=== PATIENT | male | born 1985 | race Caucasian/White ===

== ENCOUNTER 2017-04-14 03:08 | Emergency (ER) | payer OTHER ==
[2017-04-14 03:14] VITALS: BP 134/64
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
== END 2017-04-14 04:40 | disposition home or self-care (01) ==
LOC: ER 03:08
DX: S03.2XXA Dislocation of tooth, initial encounter (principal); K08.89 Other specified disorders of teeth and supporting structures; R03.0 Elevated blood-pressure reading, without diagnosis of hypertension; F17.200 Nicotine dependence, unspecified, uncomplicated; X58.XXXA Exposure to other specified factors, initial encounter
CPT/HCPCS: 99282